=== PATIENT | male | born 1990 | race Caucasian/White ===

== ENCOUNTER 2017-10-03 01:10 | Emergency (ER) | payer BC ==
[~2017-10-03] VITALS: Ht 182.9 cm; Wt 121.4 kg
[~2017-10-03 01:10] MED LIST: ADVIL,NUPRIN,M200 MG PO; CYCLOBENZAPRINE10 MG PO; FLEXERIL10 MG PO; LIDODERM 5% P1 PATCH TD; MEDROL DOSEPAK4 MG PO; MOTRIN600 MG PO; MOTRIN800 MG PO; NAPROXEN500 MG PO; PERCOCET 5/31 TABLET PO; VALIUM5 MG PO
[2017-10-03 01:39] LABS: HEMATOCRIT 41.6 % (38.0-50.0); MCHC 33.4 G/DL (30.0-36.0); MCV 92.7 FL (86-99); MEAN PLAT.VOLUME 9.9 uM^3 (9.0-12.4); PLATELET COUNT 208 K/uL (156-360); RBC DIS.WIDTH-CV 12.2 % (11.8-14.6); RBC DIS.WIDTH-SD 42.3 % (39-53); RED BLOOD COUNT 4.49 M/uL (4.00-5.50)
[2017-10-03] MEDS ORDERED: AMOXICILLIN875 MG PO (01:46)
[2017-10-03] MEDS ORDERED: MOTRIN600 MG PO (01:46)
[2017-10-03 01:49] LABS: CHLORIDE 103 mEq/L (99-109); POTASSIUM 3.8 mEq/L (3.7-5.4); SODIUM 136 mEq/L (136-147)
[2017-10-03 01:51] LABS: GLUCOSE 180 mg/dL (70-99)
[2017-10-03 01:52] LABS: ANION GAP 9 MEQ/L (2-14)
[2017-10-03 01:53] LABS: TOTAL BILIRUBIN 0.6 mg/dL (0.0-1.0)
[2017-10-03 01:54] LABS: ALKALINE PHOSPHATASE 66 IU/L (3-129)
[2017-10-03 01:55] LABS: GFR ESTIMATE (CALCULATED) > 59 mL/min/
[2017-10-03 01:56] LABS: UREA NITROGEN (BUN) 10 mg/dL (9-23)
[2017-10-03 02:05] LABS: INTERNAL CONTROL VALID? YES; MONOSPOT (MONONUCLEOSIS SEROL) NEGATIVE
[2017-10-03 02:28] VITALS: BP 121/72
== END 2017-10-03 02:29 | disposition home or self-care (01) ==
LOC: EME 01:10
DX: J02.0 Streptococcal pharyngitis (principal)
CPT/HCPCS: 80053; 85027; 86308; 87651 90; J1100